=== PATIENT | female | born 1995 | race African-American/Black ===

== ENCOUNTER → 2019-06-19 | Outpatient (REF) | payer OTHER ==
[2019-06-19 17:56] LABS: CHLAMYDIA DNA AMPLIFICATION NEGATIVE (NEGATIVE); GC DNA AMPLIFICATION NEGATIVE (NEGATIVE)
== END ==
LOC: M SFHCLERA 13:12
PROVIDERS: ATTEND Physician Assistant
DX: R35.0 Frequency of micturition (principal)